=== PATIENT | female | born 1965 | race Caucasian/White ===

== ENCOUNTER 2019-12-26 19:45 | Emergency (ER) | payer SELFPAY ==
[2019-12-26 19:46] VITALS: BP 150/96; PULSE 100; RESP 18; TEMP 36.6; O2SAT 99; BMI 18.3
[2019-12-26 20:20] VITALS: BP 123/91; PULSE 92; RESP 16; O2SAT 95
--- NOTE | 2019-12-26 20:21 | ED.VIS.GEN ---
History of Present Illness Chief Complaint: Allergic Reaction Informant: Patient Narrative: 54 year-old female presents with allergic reaction to her face. States that she dyed her hair last night and use the wrong hair dye. This caused her face to swell. States she woke up this way and took Benadryl but it is not resolving. States this is happened before in the past but this is more severe. Denies any shortness of breath, throat swelling, nausea, vomiting, abdominal pain. Past Medical History - Allergies and Home Meds Allergies/Adverse Reactions: Allergies bee venom protein (honey bee) Allergy (Verified 12/26/19 19:48) Swelling Past Medical History: None Surgical History: no surgical history Lives: Spouse/ Significant Other Smoking Status: Current every day smoker Alcohol: None Drugs: None Review of Systems General: Denies: Chills, Fever, Sweats Eyes: Denies: Visual changes - bilaterally, Diplopia ENT: Reports: - - facial swelling. Denies: Rhinorrhea, Sore throat Cardiovascular: Denies: Chest pain, Palpitations Respiratory: Denies: Dyspnea, Cough, Dyspnea on exertion Gastrointestinal: Denies: Abdominal pain, Nausea, Vomiting, Diarrhea, Melena, Hematochezia Genitourinary: Denies: Dysuria, Hematuria, Frequency Musculoskeletal: Denies: Back pain, Extremity Pain Skin: Denies: Rash, Wounds Neurological: Denies: Headache, Weakness, Numbness Physical Exam Vital Signs/Narrative: Vital Signs Temp Pulse Resp BP Pulse Ox 12/26/19 19:46 97.9 F 100 18 150/96 H 99 Inital Vital Signs reviewed: Yes General: Well nourished, Well developed, No Acute Distress Head: Normocephalic, Atraumatic Eyes: Perrl, EOMI ENT: Moist mucous membranes, No rhinorrhea, - - Swelling of the bilateral periorbital regiaions. No buccal involvement. Neck: Supple, Nontender Cardiovascular: Regular rate, Regular rhythm, No murmurs Respiratory: No distress, CTA bilaterally, Chest nontender Abdomen: Soft, Nontender, Nondistended, Normal bowel sounds Back: Nontender, Normal Inspection Extremities: Nontender, No edema Skin: Normal color, No rash Neurological: Alert, Oriented x3, Cranial nerves II-XII grossly intact, Normal Strength, Normal Sensation Psychological: Normal affect, Normal Mood Diagnostic/Tx/Re-eval - Medical Decision Making Patient appears well nontoxic. Evidence of facial swelling. No intraoral swelling. Patient has no shortness of breath or wheezing. Patient was given Benadryl as well as Solu-Medrol. Will be given prednisone for home. Monitored in the emergency department for 3 hours with no worsening symptoms. Asked to return for new or worsening symptoms. Patient agreeable and discharged home in stable condition. ED Disposition - Plan for ED Patient: Disposition: Home or Assisted Living Diagnosis: Allergic reaction Instructions: ED Allergic Reaction Local Other Prescriptions: Prednisone [Deltasone] 40 mg PO DAILY #10 tab Transmission Status: Pending to [facility]30 Referrals: Zeferino Brunner MD [STAFF PHYSICIAN] -
[2019-12-26] MEDS: MethylPREDNISolone 125 MG/2 ML Vial IV (20:29)
[2019-12-26] MEDS: 0.9% Normal Saline 1,000 ML 999 ML IV (20:29)
[2019-12-26] MEDS: Famotidine 200 MG/20 ML MDV 20 MG in 0.9% Normal Saline (Pres. free 8 ML 300 MG IV (20:30)
[2019-12-26 22:06] VITALS: BP 117/93; PULSE 90; RESP 16; O2SAT 96
[2019-12-26 23:28] VITALS: BP 119/83; PULSE 90; RESP 16; O2SAT 96
== END 2019-12-26 23:28 | disposition home or self-care (01) ==
PROVIDERS: Emergency Provider Emergency Medicine
DX: T78.49XA Other allergy, initial encounter (principal); X58.XXXA Exposure to other specified factors, initial encounter; F17.200 Nicotine dependence, unspecified, uncomplicated
CPT/HCPCS: 96365; 96375; 99283; J7030; J7040; J3490

== ENCOUNTER 2020-08-05 15:00 | Emergency (ER) | payer MEDICAID, SELFPAY ==
[2020-08-05 15:02] VITALS: BP 165/100; PULSE 73; RESP 17; TEMP 36; O2SAT 100; BMI 19.3
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
--- NOTE | 2020-08-05 15:58 | ED.RN ---
DISCHARGE INSTRUCTIONS GIVEN TO AND REVIEWED WITH PATIENT, PATIENT DENIES QUESTIONS OR CONCERNS AND VOICES UNDERSTANDING OF DISCHARGE INSTRUCTIONS. PT AMBULATES OUT OF ROOM WITHOUT DIFFICULTY.
== END 2020-08-05 15:59 | disposition home or self-care (01) ==
PROVIDERS: Emergency Provider Emergency Medicine
DX: T65.91XA Toxic effect of unspecified substance, accidental (unintentional), initial encounter (principal); S00.01XA Abrasion of scalp, initial encounter; T26.82XA Corrosions of other specified parts of left eye and adnexa, initial encounter; Y93.9 Activity, unspecified; Y92.89 Other specified places as the place of occurrence of the external cause; F17.200 Nicotine dependence, unspecified, uncomplicated; Y99.9 Unspecified external cause status; F15.90 Other stimulant use, unspecified, uncomplicated
CPT/HCPCS: 99283

== ENCOUNTER 2021-05-01 20:26 | Emergency (ER) | payer SELFPAY ==
[2021-05-01 20:27] VITALS: BP 137/90; PULSE 64; RESP 18; TEMP 36; O2SAT 100; BMI 21.8
[2021-05-01] MEDS: Ziprasidone IM 20 MG/ML VIAL IM (20:38)
--- NOTE | 2021-05-01 20:41 | EKG12_ITS ---
Test Reason : DYSRHYTHMIA Blood Pressure : / mmHG Vent. Rate : 066 BPM Atrial Rate : 066 BPM P-R Int : 136 ms QRS Dur : 094 ms QT Int : 428 ms P-R-T Axes : 018 046 050 degrees QTc Int : 448 ms Normal sinus rhythm Normal ECG Confirmed by EMIR GONZALES, SLY ([id number]), assistant film editor LACY FUENTES ([id number]) on 05/04/2021 11:43:26 AM Referred By: Confirmed By:SLY FIELD MD
--- NOTE | 2021-05-01 20:45 | EX.ED.DYSGE1 ---
HPI <Dr. Sammy Asencio DO - Last Filed: 05/01/21 22:03> History of Present Illness Chief Complaint: Substance Abuse Narrative Narrative: 55-year-old female whose family reportedly called EMS/[employer] department for a possible overdose. Patient claimed that she took alcohol and unknown amount of Xanax in an effort to kill herself. Patient is intoxicated combative and making nonsensical statements. She does not see anything when I asked her direct questions but otherwise curses at the staff and throws things. PFSH <Dr. Sammy Asencio DO - Last Filed: 05/01/21 22:03> [facility] Medical History (Updated 05/01/21 @ 22:[address] Sammy Asencio DO) Hypertension Medical History unable to obtain Home Medications lisinopril 10 mg PO DAILY 12/26/19 [History Last Taken Unknown] metoprolol tartrate 25 mg PO BID 12/26/19 [History Last Taken Unknown] prednisone 40 mg PO DAILY #10 tab 12/26/19 [Rx Last Taken Unknown] cephalexin 500 mg PO Q6 #28 cap 08/05/20 [Rx Last Taken Unknown] Allergy/AdvReac Type Severity Reaction Status Date / Time bee venom protein (honey bee) Allergy Swelling Verified 05/01/21 20:51 mosquito Allergy Rash Uncoded 05/01/21 20:51 Surgical History unable to obtain Social History (Updated 05/01/21 @ 20:[address] Sammy Asencio DO) current gender identity: female Smoking Status: Current every day smoker tobacco type: cigarettes ROS <Dr. Sammy Asencio DO - Last Filed: 05/01/21 22:03> ROS ED Review of Systems ROS Unobtainable: due to mental status EXAM <Dr. Sammy Asencio DO - Last Filed: 05/01/21 22:03> Physical Exam Const Vital Signs: 05/01/21 20:27 05/01/21 21:27 05/01/21 22:27 Temperature 96.8 F L Temperature Source Temporal Pulse Rate 64 61 65 Respiratory Rate 18 13 13 Blood Pressure 137/90 H 105/78 92/73 Blood Pressure Mean 105 87 79 Pulse Ox 100 100 100 Oxygen Delivery Method Room Air Room Air Room Air 05/01/21 23:27 05/02/21 01:28 05/02/21 02:35 Temperature Temperature Source Pulse Rate 66 Respiratory Rate 16 16 16 Blood Pressure 122/72 H Blood Pressure Mean 88 Pulse Ox 100 Oxygen Delivery Method Room Air 05/02/21 03:00 05/02/21 04:00 05/02/21 05:00 Temperature Temperature Source Pulse Rate 81 Respiratory Rate 16 15 16 Blood Pressure 118/74 Blood Pressure Mean 88 Pulse Ox 99 Oxygen Delivery Method Positive well nourished and well developed General Appearance ED: well developed HEENT Reports normocephalic, head/scalp atraumatic, TM's clear and moist mucous membranes Negative for trauma Tympanic Membrane ED: Yes TM's clear Eyes PERRL and EOMs intact bilaterally Neck no lymphadenopathy, supple and no JVD Resp normal respiratory effort and clear to auscultation bilaterally Cardio regular rate, regular rhythm and no murmurs GI normal to inspection, nondistended, normoactive bowel sounds and non-tender Palpation: soft Back/Spine no CVA tenderness and normal ROM Extremity normal to inspection General Extremety ED: Negative for edema General Extremity: Negative for edema Neuro CN's II-XII intact bilaterally Neuro Narrative: Patient has slurred speech. She has nonlinear thinking. Sensorium / Orientation: alert and orientation impaired Motor Exam: strength 5/5 throughout Psych Psych Narrative: Patient is screaming cursing at staff. Attitude: agitated Mood & Affect: Negative for depressed or tearful Skin no rashes or lesions noted and no wounds <Dr. Pasquale Kapoor, DO - Last Filed: 05/02/21 05:36> Physical Exam Const Vital Signs: 05/01/21 20:27 05/01/21 21:27 05/01/21 22:27 Temperature 96.8 F L Temperature Source Temporal Pulse Rate 64 61 65 Respiratory Rate 18 13 13 Blood Pressure 137/90 H 105/78 92/73 Blood Pressure Mean 105 87 79 Pulse Ox 100 100 100 Oxygen Delivery Method Room Air Room Air Room Air 05/01/21 23:27 05/02/21 01:28 05/02/21 02:35 Temperature Temperature Source Pulse Rate 66 Respiratory Rate 16 16 16 Blood Pressure 122/72 H Blood Pressure Mean 88 Pulse Ox 100 Oxygen Delivery Method Room Air 05/02/21 03:00 05/02/21 04:00 05/02/21 05:00 Temperature Temperature Source Pulse Rate 81 Respiratory Rate 16 15 16 Blood Pressure 118/74 Blood Pressure Mean 88 Pulse Ox 99 Oxygen Delivery Method MDM <Dr. Sammy Asencio, DO - Last Filed: 05/01/21 22:03> [facility] Narrative Medical decision making narrative: Patient was placed in leather restraints due to her aggressive violent behavior and then given Geodon. She will need to be reassessed once she is clinically sober. At this time she has not made any suicidal statements to me. She is under pink slipped by the police. Care the patient will be turned over to the oncoming physician. Lab Data Attestation: I reviewed the patient's lab results. Labs: Laboratory Results - last 24 hr 05/01/21 05/01/21 05/01/21 21:03 21:03 21:03 WBC 5.5 RBC 4.93 Hgb 15.0 Hct 44.9 MCV 91.1 MCH 30.4 MCHC 33.4 RDW Std Deviation 40.9 RDW Coeff of Brianne 12.3 Plt Count 300 MPV 10.0 Immature Gran % (Auto) 0.200 Neut % (Auto) 39.4 L Lymph % (Auto) 47.7 H [place] % (Auto) 6.9 Eos % (Auto) 5.1 H Baso % (Auto) 0.7 Absolute Neuts (auto) 2.2 Absolute Lymphs (auto) 2.63 Nucleated RBC % 0 Sodium 142 Potassium 3.3 L Chloride 107 Carbon Dioxide 29.0 Anion Gap 6 BUN 11 Creatinine 0.68 Estim Creat Clear Calc 72.20 Est GFR (MDRD) Af Amer 115 Est GFR (MDRD) Non-Af 95 BUN/Creatinine Ratio 16.1 Glucose 83 Calcium 8.6 Total Bilirubin 0.40 AST 18 ALT 19 Alkaline Phosphatase 112 Total Protein 7.9 Albumin 3.7 Globulin 4.2 Albumin/Globulin Ratio 0.9 Serum , Qual Urine Opiates Screen Urine Methadone Screen Ur Barbiturates Screen Ur Phencyclidine Scrn Ur Amphetamines Screen U Methamphetamin-MDMA U Benzodiazepines Scrn Urine Cocaine Screen U Cannabinoids Screen Ur Drug Screen Comment Ethyl Alcohol 38.0 05/01/21 05/01/21 21:03 23:40 WBC RBC Hgb Hct MCV MCH MCHC RDW Std Deviation RDW Coeff of Brianne Plt Count MPV Immature Gran % (Auto) Neut % (Auto) Lymph % (Auto) [place] % (Auto) Eos % (Auto) Baso % (Auto) Absolute Neuts (auto) Absolute Lymphs (auto) Nucleated RBC % Sodium Potassium Chloride Carbon Dioxide Anion Gap BUN Creatinine Estim Creat Clear Calc Est GFR (MDRD) Af Amer Est GFR (MDRD) Non-Af BUN/Creatinine Ratio Glucose Calcium Total Bilirubin AST ALT Alkaline Phosphatase Total Protein Albumin Globulin Albumin/Globulin Ratio Serum , Qual NEGATIVE Urine Opiates Screen NEGATIVE Urine Methadone Screen NEGATIVE Ur Barbiturates Screen NEGATIVE Ur Phencyclidine Scrn NEGATIVE Ur Amphetamines Screen POSITIVE H U Methamphetamin-MDMA NEGATIVE U Benzodiazepines Scrn POSITIVE H Urine Cocaine Screen NEGATIVE U Cannabinoids Screen POSITIVE H Ur Drug Screen Comment Ethyl Alcohol EKG Initial EKG: Attestation: I personally reviewed and interpreted this EKG as follows: Comments: Normal sinus rhythm with a ventricular rate of 66 bpm <Dr. Pasquale Kapoor, DO - Last Filed: 05/02/21 05:36> MDM MDM Narrative Medical decision making narrative: Care of the patient was turned over to me. Urine tox screen was positive for amphetamines, benzodiazepines, and cannabinoids. Patient was sleeping on examination. On reevaluation, she is awake and alert. She currently denies any suicidal or homicidal ideations. She is still rather belligerent but not a danger to herself or others. Patient was instructed to follow-up with her primary care physician and counselors. Patient is agreeable with the plan. All questions were answered. Lab Data Labs: Laboratory Results - last 24 hr 05/01/21 05/01/21 05/01/21 21:03 21:03 21:03 WBC 5.5 RBC 4.93 Hgb 15.0 Hct 44.9 MCV 91.1 MCH 30.4 MCHC 33.4 RDW Std Deviation 40.9 RDW Coeff of Brianne 12.3 Plt Count 300 MPV 10.0 Immature Gran % (Auto) 0.200 Neut % (Auto) 39.4 L Lymph % (Auto) 47.7 H [place] % (Auto) 6.9 Eos % (Auto) 5.1 H Baso % (Auto) 0.7 Absolute Neuts (auto) 2.2 Absolute Lymphs (auto) 2.63 Nucleated RBC % 0 Sodium 142 Potassium 3.3 L Chloride 107 Carbon Dioxide 29.0 Anion Gap 6 BUN 11 Creatinine 0.68 Estim Creat Clear Calc 72.20 Est GFR (MDRD) Af Amer 115 Est GFR (MDRD) Non-Af 95 BUN/Creatinine Ratio 16.1 Glucose 83 Calcium 8.6 Total Bilirubin 0.40 AST 18 ALT 19 Alkaline Phosphatase 112 Total Protein 7.9 Albumin 3.7 Globulin 4.2 Albumin/Globulin Ratio 0.9 Serum , Qual Urine Opiates Screen Urine Methadone Screen Ur Barbiturates Screen Ur Phencyclidine Scrn Ur Amphetamines Screen U Methamphetamin-MDMA U Benzodiazepines Scrn Urine Cocaine Screen U Cannabinoids Screen Ur Drug Screen Comment Ethyl Alcohol 38.0 05/01/21 05/01/21 21:03 23:40 WBC RBC Hgb Hct MCV MCH MCHC RDW Std Deviation RDW Coeff of Brianne Plt Count MPV Immature Gran % (Auto) Neut % (Auto) Lymph % (Auto) [place] % (Auto) Eos % (Auto) Baso % (Auto) Absolute Neuts (auto) Absolute Lymphs (auto) Nucleated RBC % Sodium Potassium Chloride Carbon Dioxide Anion Gap BUN Creatinine Estim Creat Clear Calc Est GFR (MDRD) Af Amer Est GFR (MDRD) Non-Af BUN/Creatinine Ratio Glucose Calcium Total Bilirubin AST ALT Alkaline Phosphatase Total Protein Albumin Globulin Albumin/Globulin Ratio Serum , Qual NEGATIVE Urine Opiates Screen NEGATIVE Urine Methadone Screen NEGATIVE Ur Barbiturates Screen NEGATIVE Ur Phencyclidine Scrn NEGATIVE Ur Amphetamines Screen POSITIVE H U Methamphetamin-MDMA NEGATIVE U Benzodiazepines Scrn POSITIVE H Urine Cocaine Screen NEGATIVE U Cannabinoids Screen POSITIVE H Ur Drug Screen Comment Ethyl Alcohol Discharge Plan Triage Chief Complaint: Substance Abuse ED Provider: Sammy Asencio Dx/Rx/DC Orders Clinical Impression: Drug ingestion, Methamphetamine abuse Instructions: ED Drug Abuse Prescriptions: No Action metoprolol tartrate 25 MG tablet 25 mg PO BID RF: 0 lisinopril 10 MG tablet 10 mg PO DAILY RF: 0 prednisone 20 MG tablet 40 mg PO DAILY Qty: 10 RF: 0 cephalexin 500 MG capsule 500 mg PO Q6 Qty: 28 RF: 0 Primary Care Provider: Care Physician,No Primary Referrals: Michelle Maynard [NON-STAFF] - 5-7 Days Care Physician,No Primary [Primary Care Provider] - [facility] [STAFF PHYSICIAN] - 3-5 Days Disposition Disposition: Home, Self Care
--- NOTE | 2021-05-01 20:46 | ED.RN ---
on arrival patient combative, yelling and screaming. pt states multiples times she wanted to , when asked if she had a plan to kill herself she states i wont tell you, i will just do it Pt intoxicated and has possibly taken unknown amount of xanax per EMS. refusing to get back in bed. Pt did take her clothes off as asked but is refusing to get into the bed, patient attempts to walk out of room multiple times. Dr Asencio at bedside and orders hillarydon. Geodon administered per AUG, patient placed 4 point locked restraints for patient and staff safety at 2039.
--- NOTE | 2021-05-01 20:48 | ED.RN ---
no sitter required at this time
[2021-05-01 21:09] LABS: Absolute Lymphocyte Count 2.63 X10^3/uL (0.83-4.51); Absolute Neutrophil Count 2.2 X10^3/uL (2.0-7.7); Basophil# 0.04 X10^3/uL; Basophil% 0.7 % (0-1); Eosinophil# 0.28 X10^3/uL; Eosinophils% 5.1 % (0-5); Hematocrit 44.9 % (37-47); Lymphocyte # 2.63 X10^3/ul (0.83-4.51); Lymphocyte % 47.7 % (19-41); Mean Corp Hgb Conc 33.4 g/dL (32-36); Mean Corpuscular Hgb 30.4 pg (27.0-32.0); Mean Corpuscular Volume 91.1 fL (81-99); Monocyte# 0.38 X10^3/uL; Monocyte% 6.9 % (0-10); NRBC Flagged by Analyzer 0 % (0-5); Neutrophil # 2.17 X10^3/uL (2.7-7.7); Neutrophil % 39.4 % (47-70); Platelet Count 300 K/mm3 (150-450); RBC Distribution Width CV 12.3 % (11.6-14.6); RBC Distribution Width SD 40.9 fl (35.1-43.9); Red Blood Count 4.93 M/mm3 (4.2-5.4); White Blood Count 5.5 K/mm3 (4.4-11.0)
[2021-05-01 21:27] VITALS: BP 105/78; PULSE 61; RESP 13; O2SAT 100
[2021-05-01 21:31] LABS: Internal QC Validated? YES +Cl - CLEAR BKGD; Pregnancy, Serum, hCG Quali. NEGATIVE Negative
[2021-05-01 21:39] LABS: ALB/GLOB Ratio 0.9 RATIO (0.9-2.4); AST(SGOT) 18 U/L (15-37); Alanine Aminotransfer ALT/SGPT 19 U/L (13-56); Albumin, Serum 3.7 g/dL (3.2-5.0); Alkaline Phosphatase 112 U/L (45-117); Anion Gap 6 (5-15); BUN 11 mg/dL (7-18); BUN/Creat Ratio 16.1 RATIO (10-20); Calcium,Total 8.6 mg/dL (8.5-10.1); Chloride 107 mmol/L (98-107); Creatinine, Serum 0.68 mg/dL (0.55-1.02); EST Glomerular Filtration Rate 95 mL/min (>60); Est Glom Filt Rate - Afr Amer 115 mL/min (>60); Globulin 4.2 g/dL (2.2-4.2); Glucose 83 mg/dL (74-106); Potassium 3.3 mmol/L (3.5-5.1); Protein, Total 7.9 g/dL (6.4-8.2); Sodium Level 142 mmol/L (136-145)
[2021-05-01 22:27] VITALS: BP 92/73; PULSE 65; RESP 13; O2SAT 100
[2021-05-01 23:27] VITALS: BP 122/72; PULSE 66; RESP 16; O2SAT 100
[2021-05-02 00:33] LABS: Amphetamine Urine VISTA POSITIVE (<1000 ng/mL); Barbiturate Urine VISTA NEGATIVE (< 200 ng/mL); Benzodiazepine Urine VISTA POSITIVE (< 200 ng/mL); Cocaine Urine VISTA NEGATIVE (< 300 ng/mL); Ecstacy Urine VISTA NEGATIVE (< 500 ng/mL); Methadone Urine VISTA NEGATIVE (< 300 ng/mL); PCP Urine VISTA NEGATIVE (< 25 ng/mL); THC Urine VISTA POSITIVE (< 50 ng/mL); Vista UDS pH Range 5
[2021-05-02 01:28] VITALS: RESP 16
[2021-05-02 02:35] VITALS: RESP 16
[2021-05-02 03:00] VITALS: RESP 16
[2021-05-02 04:00] VITALS: BP 118/74; PULSE 81; RESP 15; O2SAT 99
[2021-05-02 05:00] VITALS: RESP 16
--- NOTE | 2021-05-02 05:54 | ED.RN ---
attempted to call sister for ride, no answer
--- NOTE | 2021-05-02 06:06 | ED.RN ---
called pts mom and she is going to call someone to come get her. [phone]
== END 2021-05-02 06:15 | disposition home or self-care (01) ==
PROVIDERS: Emergency Provider Emergency Medicine
DX: T42.4X2A Poisoning by benzodiazepines, intentional self-harm, initial encounter (principal); Y92.9 Unspecified place or not applicable; F15.10 Other stimulant abuse, uncomplicated; F17.210 Nicotine dependence, cigarettes, uncomplicated; I10 Essential (primary) hypertension; Z79.52 Long term (current) use of systemic steroids
CPT/HCPCS: 36415; 80053; 80307; 82077; 84703; 85025; 87426; 93005; 96372; 99285

== ENCOUNTER 2023-05-27 12:06 | Emergency (ER) | payer MEDICAID, SELFPAY ==
[2023-05-27 12:07] VITALS: BP 145/90; PULSE 70; RESP 14; TEMP 36.8; O2SAT 98; BMI 20.5
--- NOTE | 2023-05-27 12:38 | EX.ED.DYSGE1 ---
HPI History of Present Illness Chief Complaint: Rash Informant: patient and parent Narrative Narrative: 57-year-old female presenting to the emergency room with rash on her occiput. She states it has been there for 3 years. She states that she has been to hospitals over and over again and is not any better. She states that everybody tells her that she has scabied. But after much research she believes she has a parasite. She states that she gets things out of it all the time. Things that I would not even believe. Unfortunately she cannot show me a spot where she got stuff out of today or the stuff she gets out. She states that she feels tentacles going down her neck. She shaved the skin off the area. No foreign travels. [facility] Medical History Hypertension Home Medications lisinopril 10 mg tablet 10 mg PO DAILY 12/26/19 [History Last Taken Unknown] metoprolol tartrate 25 mg tablet 25 mg PO BID 12/26/19 [History Last Taken Unknown] prednisone 20 mg tablet 40 mg (2 x 20 mg) PO DAILY #10 tabs 12/26/19 [Rx Last Taken Unknown] cephalexin 500 mg capsule 500 mg PO Q6 #28 caps 08/05/20 [Rx Last Taken Unknown] betamethasone dipropionate 0.05 % topical cream 1 applic topical BID 7 days #15 grams 05/27/23 [Rx Last Taken Unknown] Allergy/AdvReac Type Severity Reaction Status Date / Time bee venom protein (honey bee) Allergy Swelling Verified 05/27/23 12:07 insect venom [insects] Allergy Rash Verified 05/27/23 12:07 Social History Smoking Status: Current every day smoker tobacco type: cigarettes ROS ROS ED Constitutional Constitutional ED: Denies chills or weight loss Eyes Eyes: Denies change in vision or diplopia ENT ENT ED: Denies ear pain, rhinorrhea or sore throat Cardiovascular Cardiovascular: Denies chest pain, orthopnea, palpitations or racing heartbeat Respiratory/Chest Respiratory/Chest: Denies cough, dyspnea or orthopnea Gastrointestinal Gastrointestinal: Denies abdominal pain, diarrhea, nausea or vomiting Genitourinary Genitourinary ED: Denies dysuria, hematuria or urinary frequency Musculoskeletal Musculoskeletal: Denies arthralgias or myalgias Integumentary Reports rash; Denies abscess Neurologic Neurologic: Denies headache(s) or weakness Psychiatric Psychiatric: Denies anxiety, depression, suicidal ideation or suicidal thoughts Endocrine Endocrinology: Denies polydipsia, polyphagia or polyuria Allergic/Immunologic Allergic/Immunologic ED: Denies mouth swelling, tongue swelling or urticaria EXAM Physical Exam Const Vital Signs: 05/27/23 12:07 Temperature 98.2 F Temperature Source Temporal Pulse Rate 70 Respiratory Rate 14 Blood Pressure 145/90 H Blood Pressure Mean 108 Pulse Ox 98 Oxygen Delivery Method Room Air Positive well nourished and well developed General Appearance ED: well developed HEENT Reports normocephalic, head/scalp atraumatic and moist mucous membranes Eyes PERRL and EOMs intact bilaterally Neck no lymphadenopathy, supple and no JVD Resp normal respiratory effort and clear to auscultation bilaterally Cardio regular rate, regular rhythm and no murmurs GI normal to inspection, nondistended, normoactive bowel sounds and non-tender Palpation: soft Back/Spine no CVA tenderness and normal ROM Extremity normal to inspection General Extremety ED: Negative for edema General Extremity: Negative for edema Neuro oriented x3 and CN's II-XII intact bilaterally Sensorium / Orientation: alert Motor Exam: strength 5/5 throughout Psych mental status grossly normal Mood & Affect: Negative for depressed or tearful Skin no wounds Skin Narrative: Patient has slightly thickened hyperpigmented skin in the occiput and patches. There is 1 area in the midline below occiput that has some thickened flaking dry skin. There are very few areas that look like they may have been excoriated several days ago. I do not appreciate any evidence of secondary infection. I do not appreciate any area that is fluctuant or significantly indurated. MDM MDM MDM Narrative Medical decision making narrative: I think it is very unlikely that the patient would have a parasitic infection. I will write for some betamethasone cream to see if that helps with her itching and the dry flaky skin. She tells me nobody has ever told her to see dermatology. I think that it has been 3 years of a rash perhaps she should see the associate consulting engineer. Discharge Plan Triage Chief Complaint: Rash ED Provider: Sammy Asencio Dx/Rx/DC Orders Clinical Impression: Dermatitis, Rash Prescriptions: New betamethasone dipropionate 0.05 % cream 1 applic topical BID 7 Days Qty: 15 0RF No Action metoprolol tartrate 25 MG tablet 25 mg PO BID lisinopril 10 MG tablet 10 mg PO DAILY prednisone 20 MG tablet 40 mg PO DAILY Qty: 10 0RF Rx Instructions: With food cephalexin 500 MG capsule 500 mg PO Q6 Qty: 28 0RF Primary Care Provider: Care Physician,No Primary Referrals: Latonia Sands MD [Non-Staff] - As soon as possible Dung Dailey MD [Med Staff - Curriculum And Assessment Coordinator] - As soon as possible Care Physician,No Primary [Primary Care Provider] - Disposition Disposition: Home, Self Care
== END 2023-05-27 12:55 | disposition home or self-care (01) ==
LOC: ED 12:47
PROVIDERS: Emergency Provider Emergency Medicine; Visit Provider Emergency Medicine
DX: L30.9 Dermatitis, unspecified (principal); I10 Essential (primary) hypertension; F17.210 Nicotine dependence, cigarettes, uncomplicated
CPT/HCPCS: 99282

== ENCOUNTER → 2023-12-14 | Outpatient (CLI) | payer MEDICAID, SELFPAY ==
[2023-12-14 12:27] LABS: Hemoglobin A1c 5.8 % (3.8-5.6)
[2023-12-14 12:28] LABS: Absolute Lymphocyte Count 2.61 X10^3/uL (0.83-4.51); Absolute Neutrophil Count 2.4 X10^3/uL (2.0-7.7); Basophil# 0.03 X10^3/uL; Basophil% 0.5 % (0-1); Eosinophil# 0.51 X10^3/uL; Eosinophils% 8.4 % (0-5); Hematocrit 39.9 % (37-47); Hemoglobin 12.9 g/dL (12.0-15.0); Lymphocyte # 2.61 X10^3/ul (0.83-4.51); Lymphocyte % 43.2 % (19-41); Mean Corp Hgb Conc 32.3 g/dL (32-36); Mean Corpuscular Hgb 29.3 pg (27.0-32.0); Mean Corpuscular Volume 90.5 fL (81-99); Mean Platelet Vol. 11.2 fl (6.2-12.0); Monocyte# 0.43 X10^3/uL; Monocyte% 7.1 % (0-10); NRBC Flagged by Analyzer 0 % (0-5); Neutrophil # 2.44 X10^3/uL (2.7-7.7); Neutrophil % 40.5 % (47-70); Platelet Count 294 K/mm3 (150-450); RBC Distribution Width SD 42.7 fl (35.1-43.9); Red Blood Count 4.41 M/mm3 (4.2-5.4)
[2023-12-14 12:35] LABS: ALB/GLOB Ratio 0.8 RATIO (0.9-2.4); AST(SGOT) 18 U/L (15-37); Alanine Aminotransfer ALT/SGPT 17 U/L (13-56); Albumin, Serum 3.3 g/dL (3.2-5.0); Alkaline Phosphatase 85 U/L (45-117); Anion Gap 6 (5-15); BUN 21 mg/dL (7-18); BUN/Creat Ratio 20.4 RATIO (10-20); Calcium,Total 8.7 mg/dL (8.5-10.1); Chloride 108 mmol/L (98-107); Cholesterol 152 mg/dL (200); Creatinine, Serum 1.03 mg/dL (0.55-1.02); EST Glomerular Filtration Rate 59 mL/min (>60); Est Glom Filt Rate - Afr Amer 71 mL/min (>60); Globulin 3.9 g/dL (2.2-4.2); Glucose 132 mg/dL (74-106); High Density Lipoprotein 52 mg/dL; Potassium 3.6 mmol/L (3.5-5.1); Protein, Total 7.2 g/dL (6.4-8.2); Sodium Level 141 mmol/L (136-145); Thyroid Stim Hormone (TSH) 3.95 uIU/mL (0.358-3.74); Triglycerides 107 mg/dL; Very Low Density Lipoprotein 21 mg/dL (5-40)
[2023-12-14 12:43] LABS: Syphilis Antibodies Non-reactive; Vitamin B12 357 pg/mL (211-911)
[2023-12-15 13:08] LABS: ANTINUCLEAR ANTIBODIES DIRECT Negative (Negative)
== END | disposition home or self-care (01) ==
LOC: VSLAB 09:25
PROVIDERS: Visit Provider Nurse Practitioner Family
DX: L65.9 Nonscarring hair loss, unspecified (principal); I10 Essential (primary) hypertension; Z13.1 Encounter for screening for diabetes mellitus
CPT/HCPCS: 36415; 80053; 80061; 82306; 82607; 83036; 84443; 85025; 86038; 86780

== ENCOUNTER 2024-05-30 16:44 | Emergency (ER) | payer MEDICAID, SELFPAY ==
[2024-05-30 16:47] VITALS: BP 129/71; PULSE 67; RESP 18; TEMP 36; O2SAT 100
--- NOTE | 2024-05-30 16:50 | RAD_ITS ---
STUDY: X-RAY - RIGHT ANKLE REASON FOR EXAM: Female, 58 years old. fall TECHNIQUE: 3 point view(s) of the ankle. COMPARISON: None. FINDINGS: There is a tiny 2 mm bone density just lateral to the talus suggestive of a small avulsion fracture. Recommend correlation for any localized tenderness. Otherwise normal visualized talus and calcaneus. Normal visualized distal tibia and fibula. Normal medial and lateral malleoli. Normal tibiotalar articulation and ankle mortise. The visualized subtalar, talonavicular, calcaneocuboid and tarsal articulations are normal. The soft tissue structures are unremarkable. RAD/Ankle min 3 Views IMPRESSION: Cannot exclude tiny a portion off of the lateral side of the talus. No other definite acute or significant abnormality seen. Electronically Signed: Riley George MD at 17:58 EST ,
--- NOTE | 2024-05-30 19:46 | ED.VIS.LOWEX ---
HPI History of Present Illness Chief Complaint: Lower Extremity Injury Informant: patient Narrative Narrative: Patient states that she stumbled while coming down some steps yesterday, inverting her right foot/ankle and injuring her ankle laterally. She been having significant difficulty bearing weight on it. She denies any other injury or pain. [facility] Medical History Hypertension Home Medications ?Medication ?Instructions ?Recorded ?Last Taken ?Type lisinopril 10 mg tablet 10 mg PO DAILY 12/26/19 Unknown History metoprolol tartrate 25 mg tablet 25 mg PO BID 12/26/19 Unknown History prednisone 20 mg tablet 40 mg (2 x 20 mg) PO DAILY #10 tabs 12/26/19 Unknown Rx cephalexin 500 mg capsule 500 mg PO Q6 #28 caps 08/05/20 Unknown Rx betamethasone dipropionate 0.05 % 1 applic topical BID 7 days #15 05/27/23 Unknown Rx topical cream grams tramadol 50 mg tablet 50 mg PO Q6H 3 days #10 tabs 05/30/24 Unknown Rx Allergy/AdvReac Type Severity Reaction Status Date / Time bee venom protein (honey bee) Allergy Swelling Verified 05/27/23 12:07 insect venom (insects) Allergy Rash Verified 05/27/23 12:07 Social History Smoking Status: Current every day smoker tobacco type: cigarettes and e-cigarettes ROS ROS ED Constitutional Constitutional ED: Denies chills or fever(s) Musculoskeletal Musculoskeletal: Reports extremity pain; Denies neck pain Integumentary Denies Abrasions, rash or wounds Neurologic Neurologic: Denies paresthesias or weakness EXAM Physical Exam Const Vital Signs: 05/30/24 16:47 Temperature 96.8 F L Temperature Source Temporal Pulse Rate 67 Respiratory Rate 18 Blood Pressure 129/71 H Blood Pressure Mean 90 Pulse Ox 100 Oxygen Delivery Method Room Air Positive well nourished and well developed General Appearance ED: well developed and NAD Neck full ROM and supple Back/Spine normal ROM and normal to inspection Extremity Extremity Narrative: Pain, swelling, tenderness about the lateral aspect of the right ankle including the lateral malleolus, but not the base of the fifth metatarsal. She is also tender in the areas of the lateral aspect of the foot surrounding the lateral malleolus but not the calcaneus. Limited range of motion due to pain. No medial malleolus tenderness, proximal fibular tenderness, and the joint is stable. She is neurovascular intact distally. No other injuries. Neuro oriented x3, no focal motor deficits and no sensory deficits noted Neuro Narrative: GCS 15 Sensorium / Orientation: alert Psych mental status grossly normal and thought process normal Skin no wounds Rashes: no rashes MDM MDM MDM Narrative Medical decision making narrative: Three-view right ankle x-ray series of my interpretation shows what appears to be a lateral talus avulsion chip fracture. The mortise is intact and the rest of the bones appear to be unremarkable. Radiology is in agreement. She is symptomatic from this so I think it is acute. She is placed in a walking boot, given crutches, something for pain and referral to podiatry as an outpatient. Radiography Diagnostic Testing: Clinical Impression(s) from Imaging Studies Ankle X-Ray 05/30/24 16:50 IMPRESSION: Cannot exclude tiny a portion off of the lateral side of the talus. No other definite acute or significant abnormality seen. Electronically Signed: Riley George MD at 17:58 EST , Discharge Plan Triage Chief Complaint: Lower Extremity Injury ED Provider: [place] Dx/Rx/DC Orders Clinical Impression: Avulsion fracture of right talus, Sprain of ankle, right, Fall due to stumbling Instructions: ED Ankle Sprain (Adult), ED Walker Boot Prescriptions: New tramadol 50 mg tablet 50 mg PO Q6H 3 Days Qty: 10 0RF No Action metoprolol tartrate 25 MG tablet 25 mg PO BID lisinopril 10 MG tablet 10 mg PO DAILY prednisone 20 MG tablet 40 mg PO DAILY Qty: 10 0RF Rx Instructions: With food cephalexin 500 MG capsule 500 mg PO Q6 Qty: 28 0RF betamethasone dipropionate 0.05 % cream 1 applic topical BID 7 Days Qty: 15 0RF Primary Care Provider: Care Physician,No Primary Referrals: Sammy Caceres DPM [Med Staff - Active Staff] - (call for follow up appt) Care Physician,No Primary [Primary Care Provider] - Activity Restrictions/Additional Instructions: Okay for you to bear weight as tolerated. Use crutches as long as you need to. Print Language: [place] Disposition Disposition: Home, Self Care
[2024-05-30] MEDS: Naproxen 500 MG Tablet PO (20:14)
[2024-05-30] MEDS: traMADol 50 MG Tablet PO (20:14)
== END 2024-05-30 20:24 | disposition home or self-care (01) ==
PROVIDERS: Emergency Provider Emergency Medicine; Visit Provider Emergency Medicine
DX: S92.151A Displaced avulsion fracture (chip fracture) of right talus, initial encounter for closed fracture (principal); S93.401A Sprain of unspecified ligament of right ankle, initial encounter; F17.210 Nicotine dependence, cigarettes, uncomplicated; I10 Essential (primary) hypertension; W10.9XXA Fall (on) (from) unspecified stairs and steps, initial encounter
CPT/HCPCS: 73610; 99285

== ENCOUNTER → 2024-07-04 | Outpatient (CLI) | payer MEDICAID, SELFPAY | END | disposition home or self-care (01) | PROVIDERS: Referring Provider Physician Assistant; Visit Provider Physician Assistant | DX: N89.8 Other specified noninflammatory disorders of vagina (principal) | CPT/HCPCS: 87591 ==

== ENCOUNTER → 2024-07-11 | Outpatient (CLI) | payer MEDICAID, SELFPAY | END | disposition home or self-care (01) | PROVIDERS: Visit Provider Physician Assistant | DX: N39.0 Urinary tract infection, site not specified (principal); Z11.3 Encounter for screening for infections with a predominantly sexual mode of transmission | CPT/HCPCS: 87086; 87591 ==